=== PATIENT | female | born 1955 | race Caucasian/White ===

== ENCOUNTER 2020-07-10 10:43 | Outpatient (REF) | payer MEDICARE, SELFPAY ==
--- NOTE | 2020-07-10 10:53 | XR_ITS ---
EXAMINATION: XR PELVIS CLINICAL INFORMATION: Left hip replacement. COMPARISON: Pelvis radiographs 05/26/2020, left hip radiographs 01/30/2020 TECHNIQUE: AP view pelvis is performed along with lateral view left hip FINDINGS: There is bipolar left hip replacement. The hardware is intact. There is no fracture or dislocation or destructive process. No osteolysis. There are degenerative changes lumbosacral junction with disc narrowing and endplate sclerosis. The SI joints and pubis are unremarkable. There are degenerative changes again seen right hip with axial narrowing and subchondral sclerosis and osteophyte similar to prior study. Bowel gas unremarkable. XR/XR pelvis 1-2V IMPRESSION: 1. Left hip replacement. Hardware intact. No osteolysis. 2. Degenerative changes lumbosacral junction and right hip.
== END 2020-07-10 10:44 | disposition home or self-care (01) ==
LOC: HO.XRAY 10:43
PROVIDERS: PCP Internal Medicine; Referring Provider Internal Medicine; Visit Provider Orthopaedic Surgery
DX: Z96.642 Presence of left artificial hip joint (principal); M16.12 Unilateral primary osteoarthritis, left hip; M87.852 Other osteonecrosis, left femur; F17.200 Nicotine dependence, unspecified, uncomplicated
CPT/HCPCS: 72170; 99212

== ENCOUNTER 2020-08-25 10:00 | Outpatient (RCR) | payer MEDICARE, SELFPAY ==
--- NOTE | 2020-08-25 11:06 | MHC.PT.DC ---
[facility] [place] [facility] [place] Office [place] Office [address] Mannie Castañeda [address] [phone] F: [phone] F: [phone] F: [phone] F: [phone] Physical Therapy Discharge Report Diagnosis: L FARA on 05/26/2020 Date of Surgery: 05/26/2020 Date of Evaluation: 07/01/20 Date of Discharge: Treatments to Date: 12 Cancellations to Date: 0 No Shows to Date: 0 Discharge Status: Discharge Summary: Patient has progressed well through PT. She now ambulates without AD, demos good strength and ROM and tolerates dynamic balance work well. She has improved pain and has returned PLOF. DC to HEP at this time. Electronically signed by: Dionne Ruano PT Please sign and return to therapist. Thank you for your referral.
== END 2020-08-27 11:55 | disposition home or self-care (01) ==
LOC: HO.PTCHIC 10:00
PROVIDERS: PCP Internal Medicine; Visit Provider Physician Assistant
DX: Z47.1 Aftercare following joint replacement surgery (principal); Z96.642 Presence of left artificial hip joint
CPT/HCPCS: 97110; 97112; 97116; 97162; 97530

== ENCOUNTER → 2021-03-17 12:20 | Outpatient (BNVA) | payer MEDICARE, MEDICAID, OTHER, SELFPAY | PROVIDERS: PCP Internal Medicine; Visit Provider Physician Assistant | DX: S42.201A Unspecified fracture of upper end of right humerus, initial encounter for closed fracture (principal) | CPT/HCPCS: 99212 ==

== ENCOUNTER 2021-04-15 05:27 | Outpatient (REF) | payer MEDICARE, SELFPAY ==
--- NOTE | ~2021-04-15 | XR_ITS ---
EXAMINATION: XR SHOULDER, RIGHT CLINICAL INFORMATION: M25.511 - Pain in right shoulder COMPARISON: None TECHNIQUE: Right shoulder is imaged in frontal and lateral views. FINDINGS: There is a subacute humeral neck fracture with mild impaction and varus angulation distal fragment and surrounding callus formation. There is no dislocation or destructive process. The lateral view also shows cortical step off of the acromium suggesting subacute fracture not appreciated on the frontal view. The acromioclavicular alignment is normal. Right lung apex is clear and shows no pneumothorax or pleural reaction. XR/XR shoulder RT min 2V IMPRESSION: 1. Subacute fracture right humeral neck. Callus formation present. No dislocation. 2. Lateral view also suggests fracture acromium. Acromioclavicular alignment normal.
== END 2021-04-15 05:28 | disposition home or self-care (01) ==
LOC: HO.HOSX 05:27
PROVIDERS: Visit Provider Physician Assistant
DX: S42.201D Unspecified fracture of upper end of right humerus, subsequent encounter for fracture with routine healing (principal)
CPT/HCPCS: 73030; 99212

== ENCOUNTER 2021-05-19 07:29 | Outpatient (REF) | payer MEDICARE, MEDICAID, SELFPAY ==
--- NOTE | ~2021-05-19 | XR_ITS ---
EXAMINATION: XR SHOULDER, RIGHT CLINICAL INFORMATION: Fracture COMPARISON: Previous x-ray March 2021 TECHNIQUE: Two views of the right shoulder. FINDINGS: The comminuted humeral neck fracture appears unchanged in alignment. There is some bony callus formation seen not appreciably changed from previous exam. There is question of a fracture of the acromion that appears unchanged. The glenohumeral joint is normal. There is mild arthritis at the acromioclavicular joint. Soft tissues are unremarkable. XR/XR shoulder RT min 2V IMPRESSION: No change in right humeral neck and question acromion fracture.
== END 2021-05-19 07:30 | disposition home or self-care (01) ==
LOC: HO.HOSX 07:29
PROVIDERS: Visit Provider Physician Assistant
DX: S42.201D Unspecified fracture of upper end of right humerus, subsequent encounter for fracture with routine healing (principal)
CPT/HCPCS: 73030; 99212

== ENCOUNTER 2021-05-21 11:00 | Outpatient (RCR) | payer MEDICARE, SELFPAY ==
--- NOTE | 2021-04-20 09:50 | MHC.PT.EP ---
[facility] [place] Office [place] Office [place] Office [address] Miesha Castañeda [address] [phone] F: [phone] F: [phone] F: [phone] F: [phone] Physical Therapy Plan of Care Date of Evaluation: Date of Surgery: None Diagnosis: R humeral fracture Assessment: Patient is a 65 year old R handed female who presents with s/s consistent with fracture of humerus. She is not currently working but would like to potentially when healed. She is traveling to [place] in 5 weeks and is hoping to be feeling much better by then. Patient past medical history is non-contributory. Current impairments include pain, posture, ROM, strength, safety, independence, activity tolerance and functional mobility. Functional limitations include decreased ability to lift, reach, carry, push, pull, shower, dress, and perform weight bearing activities.. Patient is motivated with good rehab potential. Skilled PT will address impairments and functional limitations in order to achieve goals. Frequency and Duration: The patient will be seen 2x/week for 5 weeks Short Term Goals: I with HEP - 2 weeks AROM flexion and abd to 90, ER to 30 - 3 weeks Able to sleep 4 hours undisturbed by pain - 3 weeks Halfway Goals: Strength 4/5 - 5 weeks AROM flexion and abd 120, ER/IR arc to 120 Treatment Plan: Modalities to reduce pain, spasms and effusion. Manual therapy to restore motion and function. Therapeutic exercise to improve strength and flexibility. Neuromuscular re-education for posture and balance. Therapeutic activities to return to functional activities of daily living. Electronically signed by: Shalom Mueller, PT Please sign and return to therapist. Thank you for your referral.
--- NOTE | 2021-08-24 14:09 | MHC.PT.DC ---
[facility] [place] Office [place] Office [place] Office [address] Mannie Castañeda 140 [facility] [phone] F: [phone] F: [phone] F: [phone] F: [phone] Physical Therapy Discharge Report Diagnosis: R humeral fracture 03/13/21 Date of Surgery: None Date of Evaluation: 04/19/21 Date of Discharge: 05/21/21 Treatments to Date: 10 Cancellations to Date: 0 No Shows to Date: 0 Discharge Status: Independent with HEP Discharge Summary: 05/21/21: Pt has improved on impairments and functional limitations. She is happy with progress and confident flying to [place]. She will pursue PT once there. She is appropriate to d/c to HEP at this time. Electronically signed by: Shalom Mueller, PT Please sign and return to therapist. Thank you for your referral.
== END 2021-08-24 14:09 | disposition home or self-care (01) ==
LOC: HO.PTCHIC 11:00
PROVIDERS: Visit Provider Physician Assistant
DX: S42.201A Unspecified fracture of upper end of right humerus, initial encounter for closed fracture (principal)
CPT/HCPCS: 97110; 97140; 97161

== ENCOUNTER 2021-09-02 05:10 | Outpatient (REF) | payer MEDICARE, MEDICAID, SELFPAY ==
--- NOTE | ~2021-09-02 | XR_ITS ---
EXAMINATION: XR SHOULDER, RIGHT CLINICAL INFORMATION: Pain in right shoulder COMPARISON: 05/19/2021 TECHNIQUE: AP external rotation, Grashey, scapular Y, and axillary views of the right shoulder. FINDINGS: There is been interval healing of the comminuted right humeral neck fracture with stable osseous alignment. The glenohumeral joint and acromioclavicular joints appear grossly intact. No new fracture. Degenerative changes in the glenohumeral joint. XR/XR shoulder RT min 2V IMPRESSION: Stable osseous alignment in the healing humeral neck fracture.
== END 2021-09-02 05:11 | disposition home or self-care (01) ==
LOC: HO.HOSX 05:10
PROVIDERS: Visit Provider Physician Assistant
DX: S42.201D Unspecified fracture of upper end of right humerus, subsequent encounter for fracture with routine healing (principal)
CPT/HCPCS: 73030; 99212

== ENCOUNTER 2024-05-29 11:11 | Outpatient (AMB) | payer MEDICARE, MEDICAID, SELFPAY ==
--- NOTE | 2024-05-29 11:33 | MHC.OFFWIV ---
Intake Vital Signs 05/29/24 11:34 Height 5 ft 4 in Weight 156 lb BMI 26.8 BP 128/84 Blood Pressure Location Rt brachial Position Sitting Pulse 88 Pulse Source Pulse Oximeter Temp 100.0 F Temp Source Oral Pulse Oximetry (%) 96 Oxygen Delivery Method Room Air Intake Visit Reasons: EP-rt arm swollen from a fall Intake Note: pt c/o LT arm and wrist swollen and painful. 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 [facility] Medical History Avascular necrosis of femur head, left Primary osteoarthritis of left hip Surgical History History of cholecystectomy History of open reduction and internal fixation (ORIF) procedure Status post total hip replacement, left Family History Mother No problems noted. Father No problems noted. Social History (System 09/27/23 @ 12:58 by Shaila Sullivan) Patient Tobacco Use Status: Current everyday Tobacco user Current occupational status: retired Current occupation: rt handed Review of Systems Const Denies chills, Denies fever(s) and Denies weakness ENT Denies neck pain Card Denies chest pain Resp Denies cough GI Denies vomiting Musc Reports joint swelling (L distal forearm/wrist edema/ecchymosis), Denies neck pain and Denies tingling Skin/Breast Reports unusual bruising (L distal forearm) Neuro Denies tingling and Denies weakness Physical Exam Vital Signs: Last Vital Signs Temp 100.0 F 05/29/24 11:34 Pulse 88 05/29/24 11:34 BP 128/84 05/29/24 11:34 Pulse Ox 96 05/29/24 11:34 Oxygen Delivery Method Room Air 05/29/24 11:34 BMI result Body Mass Index 26.8 General: Non-toxic, NAD. Speaking full sentences. Skin: Warm dry throughout. L distal forearm/wrist with blue/purple ecchymosis. No erythema or warmth. Minimal green discoloration to dorsal aspect L hand. Neck: No c-spine tenderness Respiratory: No respiratory distress. No tachypnea Cardiac: Radial pulse 2+ L wrist MSK: No bony tenderness to palpation L AC joint, clavicle, shoulder, humerus or elbow. + tenderness to palpation radial aspect L distal wrist and scaphoid bone. + full movement at digits L hand without bony tenderness to metacarpal bones L hand. Neurology: A/O. No aphasia or facial droop. Gait without abnormality Psych: Good mood and affect Office Procedures Casting/Splints 88944-Tzrcamm Splint Application (verbal consent obtained. Thumb spica applied to LUE. Neurovascularly intact pre and post application. Pt tolerated well.) Additional procedure code (CPT) needed Assessment & Plan Assessment & Plan (1) Wrist pain, left: Code(s): M25.532 - Pain in left wrist Plan: I evaluated pt and xray ordered (2) Wrist fracture, left: Code(s): S62.102A - Fracture of unspecified carpal bone, left wrist, initial encounter for closed fracture Qualifiers: Encounter type: initial encounter Fracture type: closed Qualified Code(s): S62.102A - Fracture of unspecified carpal bone, left wrist, initial encounter for closed fracture Plan: Patient seen and evaluated. Xray interpretted by myself + fx radius distal See procedure note; splint applied Pt tolerated well. Discussed care instructions with pt and grandson Ortho follow up Arm elevation. Tylenol with codeine severe pain (discussed lethargy. No alcohol or driving) Patient and grandson gave verbal understanding and had no additional questions or concerns at time of discharge All questions answered Orders: Referrals Orthopedics Referral S62.102A - Fracture of unspecified carpal bone, left wrist, initial encounter for closed fracture Medications: New acetaminophen-codeine 300-15 mg 1 tab PO Q12H PRN 5 tabs 0RF pain Coding Level of Care Code Est Pt Level 4 (31200) Diagnoses Wrist pain, left M25.532 Closed fracture of left wrist, initial encounter S62.102A Encounter type: initial encounter Fracture type: closed CPT Codes Splint - CPT: 98051-Dptcftb Splint Application ([id number])
[2024-05-29 11:34] VITALS: BP 128/84; PULSE 88; TEMP 37.8; O2SAT 96; BMI 26.8
== END 2024-05-29 12:37 | disposition home or self-care (01) ==
PROVIDERS: PCP Internal Medicine; Visit Provider Physician Assistant
DX: S62.102A Fracture of unspecified carpal bone, left wrist, initial encounter for closed fracture (principal); M25.532 Pain in left wrist
CPT/HCPCS: 99214

== ENCOUNTER 2024-05-29 11:51 | Outpatient (REF) | payer MEDICARE, MEDICAID, SELFPAY ==
--- NOTE | ~2024-05-29 | XR_ITS ---
EXAMINATION: XR WRIST, LEFT CLINICAL INFORMATION: Pain in the left wrist COMPARISON: None available. TECHNIQUE: PA, lateral, and oblique views of the left wrist. Single view of the left scaphoid. FINDINGS: There is cortical disruption involving the left distal radius metaphysis suggesting nondisplaced fracture, better visualized on the lateral projection, series 3 image 1. No definite intra-articular extension. No additional fractures identified. The scapholunate interval is within normal limits. Joint spaces appear maintained. Mild soft tissue swelling. No abnormal soft tissue calcifications. XR/XR wrist LT w scaphoid IMPRESSION: Cortical disruption involving the left distal radius metaphysis suggesting nondisplaced fracture. Electronically signed by: Negrito Aleman MD 05/29/2024 12:58 PM EDT
== END 2024-05-29 11:52 | disposition home or self-care (01) ==
LOC: HO.HMGCX 11:51
PROVIDERS: PCP Internal Medicine; Visit Provider Physician Assistant
DX: M25.532 Pain in left wrist (principal)
CPT/HCPCS: 73110

== ENCOUNTER 2024-05-30 10:28 | Outpatient (REF) | payer MEDICARE, MEDICAID, SELFPAY ==
--- NOTE | ~2024-05-30 | XR_ITS ---
EXAMINATION: XR WRIST, LEFT CLINICAL INFORMATION: Distal radius fracture follow-up COMPARISON: 05/29/2024 TECHNIQUE: PA, lateral, and oblique views of the left wrist performed on 05/30/2024 and on 06/04/2024. FINDINGS: Earlier set of radiographs demonstrates stable alignment with minimal sclerosis along the distal radius fracture. Slight dorsal angulation. The fracture demonstrates intra-articular portion at the ulnar aspect, and extends through Adam's tubercle dorsally. No additional fracture or new abnormality. The later set of radiographs demonstrates a decrease in soft tissue swelling. The distal radius fracture is again in stable alignment with slight dorsal angulation. Subtle sclerosis at the midportion of the fracture is similar. XR/XR wrist LT w scaphoid IMPRESSION: Stable alignment of the intra-articular distal radius fracture with slight dorsal angulation. Minimal interval healing.The later set of radiographs demonstrates a decrease in soft tissue swelling. Electronically signed by: Jorge Sal MD 06/05/2024 01:31 PM EDT
== END 2024-05-30 10:29 | disposition home or self-care (01) ==
LOC: HO.HOSX 10:28
PROVIDERS: PCP Internal Medicine
DX: S52.502A Unspecified fracture of the lower end of left radius, initial encounter for closed fracture (principal)
CPT/HCPCS: 25600; 73110; 99202

== ENCOUNTER 2024-05-30 11:23 | Outpatient (AMB) | payer MEDICARE, MEDICAID, SELFPAY ==
--- NOTE | 2024-05-30 11:25 | MHC.OFFVIS ---
Vital Signs 05/30/24 11:29 Height 5 ft 4 in Weight 156 lb BMI 26.8 Handedness Right Intake Visit Reasons: FC- Left wrist fracture Intake Note: Danelle is a 68 year old right hand dominant Bangladeshi speaking female who presents today with her son for her left wrist fracture s/p fall DOI: 05/27/2024. Patient reports she was outside getting a package when she fell on her left arm. She has been experiencing pain and swelling since the fall. Her symptoms exacerbate with ROM. Denies numbness, tingling, and weakness. She was seen on 05/29/2024 at [facility] where they provided her with a brace however her son says she finds relief without it because it was causing her pain. Tylenol and ibuprofen offers mild relief. Hx of Left humeral head fracture with plate placed and Right humerus fracture that healed with sling. Accompanied by: Son Allergies No Known Allergies [No Known Allergies*] Allergy (Verified 05/30/24 11:32) HPI HPI FC- Left wrist fracture: Details: Patient is a 68-year-old Bangladeshi speaking female who presents for evaluation of left wrist fracture, date of injury 05/27/2024. On this date, the patient's son reports that she was going to get her mail, when she fell onto her left hand and wrist. Patient was previously evaluated at the urgent care, where x-rays were taken, revealing a minimally displaced fracture of the left distal radius. The patient was provided with a Velcro wrist splint to be worn until follow-up, but the patient her son both state that she was experiencing significantly more pain with the splint on, so they removed it. Today, the patient reports that she is still experiencing significant swelling, bruising, and discomfort on both the dorsal and volar aspects of the left wrist. Patient denies any numbness or tingling in the left upper extremity. No other acute complaints or concerns at this time. [facility] Medical History Avascular necrosis of femur head, left Primary osteoarthritis of left hip Surgical History History of cholecystectomy History of open reduction and internal fixation (ORIF) procedure Status post total hip replacement, left Family History Mother No problems noted. Father No problems noted. Social History (Updated 05/30/24 @ 11:33 by NUVIA Prather) Alcohol intake: current Alcohol intake frequency: a few times a month Patient Tobacco Use Status: Current everyday Tobacco user Tobacco use type: Cigarette Current occupational status: retired Current occupation: rt handed Review of Systems Const All systems reviewed & are unremarkable except as noted in HPI and below Physical Exam Vital Signs: BMI result Body Mass Index 26.8 Extrem Other: Patient is alert, oriented, and in no acute distress. Neuro: Patient reports normal sensation of the tips of all digits left hand at this time Vascular: Cap refill brisk Pain: Patient reports tenderness to palpation about the radial styloid, as well as on the dorsal and volar aspects of the left wrist at the level of the ulnar distal radius and DRUJ No tenderness to palpation of the left anatomical snuffbox No tenderness to palpation of the left ulnar styloid ROM: Patient is able to make a closed fist and extend all digits of the left hand fully without difficulty Skin: No lacerations or abrasions. General: Significant ecchymosis and edema of the left wrist noted, both door and volar No erythema noted No evidence of infection No laxity of the DRUJ noted Psych: Appears grossly normal Affect normal Attitude cooperative Results Reviewed Results Reviewed: X-rays obtained in the office today and independently reviewed by me, Bryn Obrien PA-C, demonstrate minimally displaced fracture of the left distal radius. Assessment & Plan Assessment & Plan (1) Fracture of left distal radius: Code(s): S52.502A - Unspecified fracture of the lower end of left radius, initial encounter for closed fracture Category: Medical Plan 1. Left distal radius fracture Date of injury 05/27/2024 Patient was discussed with Dr. Reid, who was not available in clinic to see the patient with me today, and a collaborative treatment plan was formed: Patient is informed that, due to minimally displaced nature of her fracture, she can tentatively be managed conservatively At this time, the patient is placed in a volar short-arm splint to allow for decrease in swelling Patient is informed that she should keep the splint on at all times, keep it dry and clean Patient is also advised she should not be lifting anything heavier than 1-2 lb in her hand I informed the patient that he should follow-up next week with me while Dr. Reid's in the office, to reassess fracture alignment and discuss if any further intervention, including surgery, would be indicated at that time. Patient is amenable to this plan Patient will follow-up next week for reassessment, sooner with any acute concerns Orders: Orders XR wrist LT w scaphoid Today M25.532 - Pain in left wrist Coding Level of Care Code New Pt Level 3 (54294) Diagnoses Fracture of left distal radius S52.502A
[2024-05-30 11:29] VITALS: BMI 26.8
== END 2024-05-30 12:11 | disposition home or self-care (01) ==
PROVIDERS: PCP Internal Medicine
DX: S52.502A Unspecified fracture of the lower end of left radius, initial encounter for closed fracture (principal)
CPT/HCPCS: 25600; 99203; 99213

== ENCOUNTER 2024-06-04 10:53 | Outpatient (AMB) | payer MEDICARE, MEDICAID, SELFPAY ==
[2024-06-04 11:23] VITALS: BMI 26.8
--- NOTE | 2024-06-04 11:23 | A.OFFVIS_ITS ---
Vital Signs 06/04/24 11:23 Height 5 ft 4 in Weight 156 lb BMI 26.8 Intake Visit Reasons: OV- Left wrist fracture-Follow up Intake Note: Danelle is a 68 year old right hand dominant Greek speaking female who presents today with her cousin for a follow up visit of her left wrist fracture s/p fall DOI: 05/27/2024. Patient denies pain, numbness, or tingling. Allergies No Known Allergies [No Known Allergies*] Allergy (Verified 06/04/24 11:28) HPI HPI OV- Left wrist fracture-Follow up: Details: Patient is a 69-year-old female who presents for one-week follow-up status post left distal radius fracture, date of injury 05/27/2024. Today, the patient reports that she is feeling much better, and that she is not experiencing any pain in the hand or wrist at baseline. The patient reports that she did leave the splint on at all times since prior evaluation, and then she was very adherent to the 2 lb weight limit previously given to her. Patient reports that her swelling has also decreased significantly since date injury patient denies any numbness or tingling in the left upper extremity. No other acute complaints or concerns at this time. [facility] Medical History Avascular necrosis of femur head, left Primary osteoarthritis of left hip Surgical History History of cholecystectomy History of open reduction and internal fixation (ORIF) procedure Status post total hip replacement, left Family History Mother No problems noted. Father No problems noted. Social History (Updated 05/30/24 @ 11:33 by NUVIA Prather) Alcohol intake: current Alcohol intake frequency: a few times a month Patient Tobacco Use Status: Current everyday Tobacco user Tobacco use type: Cigarette Current occupational status: retired Current occupation: rt handed Physical Exam Vital Signs: BMI result Body Mass Index 26.8 Extrem Other: Patient is alert, oriented, and in no acute distress. Neuro: Normal sensation of the tips of all digits of the left hand at this time Vascular: Cap refill brisk Pain: Patient reports no tenderness to palpation about the left hand or wrist No tenderness to palpation of the radial styloid No tenderness to palpation of the ulnar styloid No anatomical snuffbox tenderness ROM: Patient is able to make a closed fist and extend the digits of the left hand fully and without difficulty Skin: No lacerations or abrasions. General: Mild edema about the left wrist noted Old, yellowed ecchymosis noted on the left wrist, worst on the dorsal aspect Psych: Appears grossly normal Affect normal Attitude cooperative Office Procedures Casting/Splints 20426-Vkqzrjt Cast Application Procedure code (CPT) selection complete Fracture Care Details: Left distal radius fracture Fracture Billing Code: Fracture Billing Code Results Reviewed Results Reviewed: X-rays obtained in the office today and independently reviewed by me, Bryn Obrien PA-C, demonstrate minimally displaced fracture of the left distal radius with approximately 0-5 degrees of dorsal angulation. Assessment & Plan Assessment & Plan (1) Fracture of left distal radius: Code(s): S52.502A - Unspecified fracture of the lower end of left radius, initial encounter for closed fracture Category: Medical Plan 1. Left distal radius fracture, minimally displaced Date of injury 05/27/2024 Patient is discussed with Dr. Reid, who was not available to see the patient in clinic at this time, and a collaborative treatment plan was formed: It was decided that the patient will not require surgery, and can continue to be treated conservatively Patient was placed in a short-arm cast at this time, and is told she should remain in this cast for 3 weeks until follow-up Patient is educated about proper cast care and precautions Patient is once again informed that she will have a strict 2 lb weight limit in her left hand, for risk of displacing fracture and further indicating surgery Patient is also informed that she should continue with [id number] exercises of the left hand 2-3 times times per hour Patient is amenable to this plan Patient will follow-up in 3 weeks with repeat x-rays, sooner with any acute concerns Orders: Orders XR wrist LT w scaphoid Today M25.532 - Pain in left wrist Coding Level of Care Code Est Pt Level 3 (70958) Diagnoses Fracture of left distal radius S52.502A CPT Codes Casting - CPT: 65536-Xchrawi Cast Application ([id number]) Fracture Care - Fracture Billing Code: Fracture Billing Code ([id number])
== END 2024-06-04 12:59 | disposition home or self-care (01) ==
PROVIDERS: PCP Internal Medicine
DX: S52.502A Unspecified fracture of the lower end of left radius, initial encounter for closed fracture (principal); W19.XXXA Unspecified fall, initial encounter
CPT/HCPCS: 29075; 99024

== ENCOUNTER 2024-06-04 11:03 | Outpatient (REF) | payer MEDICARE, MEDICAID, SELFPAY ==
--- NOTE | ~2024-06-04 | XR_ITS ---
EXAMINATION: XR WRIST, LEFT CLINICAL INFORMATION: Distal radius fracture follow-up COMPARISON: 05/29/2024 TECHNIQUE: PA, lateral, and oblique views of the left wrist performed on 05/30/2024 and on 06/04/2024. FINDINGS: Earlier set of radiographs demonstrates stable alignment with minimal sclerosis along the distal radius fracture. Slight dorsal angulation. The fracture demonstrates intra-articular portion at the ulnar aspect, and extends through Adam's tubercle dorsally. No additional fracture or new abnormality. The later set of radiographs demonstrates a decrease in soft tissue swelling. The distal radius fracture is again in stable alignment with slight dorsal angulation. Subtle sclerosis at the midportion of the fracture is similar. XR/XR wrist LT w scaphoid IMPRESSION: Stable alignment of the intra-articular distal radius fracture with slight dorsal angulation. Minimal interval healing.The later set of radiographs demonstrates a decrease in soft tissue swelling. Electronically signed by: Jorge Sal MD 06/05/2024 01:31 PM EDT
== END 2024-06-04 11:04 | disposition home or self-care (01) ==
LOC: HO.HOSX 11:03
PROVIDERS: PCP Internal Medicine
DX: S52.502A Unspecified fracture of the lower end of left radius, initial encounter for closed fracture (principal); X58.XXXA Exposure to other specified factors, initial encounter; Y93.9 Activity, unspecified; Y92.9 Unspecified place or not applicable; Y99.9 Unspecified external cause status
CPT/HCPCS: 29075; 73110; 99212

== ENCOUNTER 2024-06-25 08:27 | Outpatient (REF) | payer MEDICARE, MEDICAID, SELFPAY ==
--- NOTE | ~2024-06-25 | XR_ITS ---
EXAMINATION: XR WRIST LEFT WITH SCAPHOID 4 VIEWS CLINICAL INFORMATION: Pain in left wrist M25.532. COMPARISON: XR Left wrist with scaphoid 06/04/2024 TECHNIQUE: PA, lateral, oblique and scaphoid views of the left wrist. FINDINGS: Again demonstrated is a nondisplaced distal radial fracture. There is mild interval callus formation below the fracture line is still visualized. Carpal bones are maintained. No carpal bone fracture. Visualized metacarpals demonstrate no fracture. XR/XR wrist LT w scaphoid IMPRESSION: Mild interval callus formation of known distal radial fracture. Electronically signed by: Rico Beauchamp MD 08/29/2024 08:45 AM AXEL
== END 2024-06-25 08:28 | disposition home or self-care (01) ==
LOC: HO.HOSX 08:27
DX: M25.532 Pain in left wrist (principal); S52.502D Unspecified fracture of the lower end of left radius, subsequent encounter for closed fracture with routine healing
CPT/HCPCS: 73110; 99212

== ENCOUNTER 2024-06-25 08:37 | Outpatient (AMB) | payer MEDICARE, MEDICAID, SELFPAY ==
--- NOTE | 2024-06-25 08:52 | MHC.OFFVIS ---
Intake Visit Reasons: OV- Left wrist fracture-Follow up Intake Note: Danelle is a 69 year old right hand dominant [place]uran speaking female who presents today with her cousin for a follow up visit of her left wrist fracture s/p fall DOI: 05/27/2024. Pt states she doesn't have any pain and is able to move all of her fingers. Pt states she has no complaints at this time. Accompanied by: cousin Allergies No Known Allergies [No Known Allergies*] Allergy (Verified 06/25/24 08:53) HPI HPI OV- Left wrist fracture-Follow up: Details: Patient is a 69-year-old female who presents for 4 week follow-up after left distal radius and ulnar styloid fractures, date of injury 05/27/24. Today, the patient reports that she is feeling well, in his experiencing no acute symptoms at this time. The patient reports that her only concern was that she felt her cast was ?too heavy?. The patient reports that she has been compliant with the 2 lb weight limit given to her at last visit. Patient denies any numbness or tingling in the left hand. No other acute complaints or concerns at this time. [facility] Medical History Avascular necrosis of femur head, left Primary osteoarthritis of left hip Surgical History History of cholecystectomy History of open reduction and internal fixation (ORIF) procedure Status post total hip replacement, left Family History Mother No problems noted. Father No problems noted. Social History (Updated 05/30/24 @ 11:33 by NUVIA Prather) Alcohol intake: current Alcohol intake frequency: a few times a month Patient Tobacco Use Status: Current everyday Tobacco user Tobacco use type: Cigarette Current occupational status: retired Current occupation: rt handed Review of Systems Const All systems reviewed & are unremarkable except as noted in HPI and below Physical Exam Extrem Other: Patient is alert, oriented, and in no acute distress. Neuro: Normal sensation of the tips of all digits of the left hand at this time Vascular: Cap refill brisk Pain: Patient reports no tenderness to palpation of the left radial styloid, ulnar styloid, anatomical snuffbox, or elsewhere throughout the left wrist and hand ROM: Patient is able to make a closed fist and extend all digits of the left hand fully and without difficulty Skin: No lacerations or abrasions. General: Resolving ecchymosis noted in the left wrist No erythema or evidence of infection noted Psych: Appears grossly normal Affect normal Attitude cooperative Results Reviewed Results Reviewed: X-rays obtained in the office today and independently reviewed by me, Bryn Obrien PA-C, demonstrate minimally displaced fracture of the left distal radius with intra-articular involvement and evidence of interval bony healing. Assessment & Plan Assessment & Plan (1) Fracture of left distal radius: Code(s): S52.502A - Unspecified fracture of the lower end of left radius, initial encounter for closed fracture Category: Medical Plan 1. Left distal radius fracture, minimally displaced Date of injury 05/27/2024 Patient appears to be recovering well from her injury Patient is educated about the typical recovery course At this time, patient was provided with a Velcro wrist splint to be worn with daytime activities, it was removed from a cast Patient is educated that she can remove this while at rest or while bathing to work on gentle range of motion of the left wrist Patient was initially told that she does not have to wear the Velcro wrist splint while sleeping, but she states she is very concerned that she does roll over onto her left wrist frequently while sleeping Patient is educated that if she is more comfortable, she can wear the Velcro wrist splint to sleep for the 1st 2 weeks Patient is amenable to this plan Patient will follow-up in 4 weeks with repeat x-rays for reassessment, sooner with any acute concerns Orders: Orders XR wrist LT w scaphoid Today M25.532 - Pain in left wrist Coding Level of Care Code Global (84597) Diagnoses Fracture of left distal radius S52.502A
== END 2024-06-25 09:31 | disposition home or self-care (01) ==
PROVIDERS: PCP Internal Medicine
DX: S52.502A Unspecified fracture of the lower end of left radius, initial encounter for closed fracture (principal)
CPT/HCPCS: 99024

== ENCOUNTER 2024-07-23 08:58 | Outpatient (REF) | payer MEDICARE, MEDICAID, SELFPAY ==
--- NOTE | ~2024-07-23 | XR_ITS ---
EXAMINATION: XR WRIST LEFT WITH SCAPHOID CLINICAL INFORMATION: Pain in left wrist M25.532. COMPARISON: XR Left wrist with scaphoid 06/25/2024 TECHNIQUE: PA, lateral, scaphoid and oblique views of the left wrist. FINDINGS: Continued interval callus formation of the distal intra-articular radial fracture. Fracture line remains faintly visible. No fracture the visualized distal ulna. Carpal rows are maintained. No carpal bone fracture. Visualized metacarpals demonstrate no fracture. No significant soft tissue swelling. No radiopaque foreign body. XR/XR wrist LT w scaphoid IMPRESSION: Continued interval healing of distal intra-articular radial fracture. Electronically signed by: Rico Beauchamp MD 08/29/2024 09:57 AM AXEL [facility]DIVAR
== END 2024-07-23 08:59 | disposition home or self-care (01) ==
LOC: HO.HOSX 08:58
PROVIDERS: PCP Internal Medicine
DX: M25.532 Pain in left wrist (principal); S52.502D Unspecified fracture of the lower end of left radius, subsequent encounter for closed fracture with routine healing; S52.615S Nondisplaced fracture of left ulna styloid process, sequela
CPT/HCPCS: 73110; 99212

== ENCOUNTER 2024-07-23 08:58 | Outpatient (AMB) | payer MEDICARE, MEDICAID, SELFPAY ==
--- NOTE | 2024-07-23 09:07 | A.OFFVIS_ITS ---
Intake Visit Reasons: OV- Left wrist fracture-Follow up-w/xray Intake Note: Danelle is a 68 year old right hand dominant Amharic speaking female who presents today with her cousin Ting for a follow up visit of her left wrist fracture s/p fall DOI: 05/27/2024. Patient reports that she is dong well with no pain, denies numbness and tingling. She is wearing her brace with activity. She feels that her ROM is improving. Allergies No Known Allergies [No Known Allergies*] Allergy (Verified 07/23/24 09:10) HPI HPI OV- Left wrist fracture-Follow up-w/xray: Details: Patient is a 69-year-old female who presents for 4 week evaluation of left distal radius fracture. Today, the patient reports that she is feeling well, in his experiencing no acute symptoms at this time. The patient reports that she has been compliant with the 2 lb weight limit given to her at last visit. Patient denies any numbness or tingling in the left hand. No other acute complaints or concerns at this time. [facility] Medical History Primary osteoarthritis of left hip Avascular necrosis of femur head, left Surgical History Status post total hip replacement, left History of open reduction and internal fixation (ORIF) procedure History of cholecystectomy Family History Mother No problems noted. Father No problems noted. Social History Alcohol intake: current Alcohol intake frequency: a few times a month Patient Tobacco Use Status: Current everyday Tobacco user Tobacco use type: Cigarette Current occupational status: retired Current occupation: rt handed Review of Systems Const All systems reviewed & are unremarkable except as noted in HPI and below Physical Exam Extrem Other: Patient is alert, oriented, and in no acute distress. Neuro: Normal sensation of the tips of all digits of the left hand at this time Vascular: Cap refill brisk Pain: Patient reports no tenderness to palpation of the left radial styloid, ulnar styloid, anatomical snuffbox, or elsewhere throughout the left wrist and hand ROM: Patient is able to make a closed fist and extend all digits of the left hand fully and without difficulty Skin: No lacerations or abrasions. General: Resolving ecchymosis noted in the left wrist No erythema or evidence of infection noted Psych: Appears grossly normal Affect normal Attitude cooperative Results Reviewed Results Reviewed: X-rays obtained in the office today and independently reviewed by me, Bryn Obrien PA-C, demonstrate minimally displaced fracture of the left distal radius with intra-articular involvement and evidence of interval bony healing. Assessment & Plan Assessment & Plan (1) Fracture of left distal radius: Code(s): S52.502A - Unspecified fracture of the lower end of left radius, initial encounter for closed fracture Category: Medical (2) Nondisplaced fracture of left ulna styloid process, sequela: Code(s): S52.615S - Nondisplaced fracture of left ulna styloid process, sequela Category: Medical Plan 1. Left distal radius fracture, minimally displaced Date of injury 05/27/2024 Patient appears to be recovering well from her injury Patient is educated about the typical recovery course At this time, patient was provided with a Velcro wrist splint to be worn with daytime activities, it was removed from a cast Patient is educated that she can remove this while at rest or while bathing to work on gentle range of motion of the left wrist Patient is educated that she should be completely out of the Velcro wrist while sleeping, and that this will not displace her fracture further Patient is amenable to this plan Patient will follow-up in 4 weeks with repeat x-rays for reassessment, sooner with any acute concerns Orders: Orders XR wrist LT w scaphoid Today M25.532 - Pain in left wrist Coding Level of Care Code Global (09251) Diagnoses Fracture of left distal radius S52.502A Nondisplaced fracture of left ulna styloid process, sequela S52.615S
== END 2024-07-23 09:44 | disposition home or self-care (01) ==
LOC: HO.HOS 08:58
PROVIDERS: PCP Internal Medicine
DX: S52.502A Unspecified fracture of the lower end of left radius, initial encounter for closed fracture (principal); S52.615S Nondisplaced fracture of left ulna styloid process, sequela
CPT/HCPCS: 99024

== ENCOUNTER 2024-09-02 14:50 | Outpatient (AMB) | payer MEDICARE, MEDICAID, SELFPAY ==
--- NOTE | 2024-09-02 14:53 | A.OFFVIS_ITS ---
Vital Signs 09/02/24 14:58 Height 5 ft 4 in Weight 196 lb BMI 33.6 Handedness Right Intake Visit Reasons: OV: Left wrist FX DOI:05/27/24-w/xrays Intake Note: Danelle is a 68 year old right hand dominant Welsh speaking female who presents today with her cousin Ting for a follow up visit of her left wrist fracture s/p fall DOI: 05/27/2024. Patient reports she feels well. Denies pain. Denies stiffness and tightness. Patient states she has no question or concerns at visit. Allergies No Known Allergies [No Known Allergies*] Allergy (Verified 09/02/24 14:58) HPI HPI OV: Left wrist FX DOI:05/27/24-w/xrays: Details: Patient is a 69-year-old female who presents for evaluation of left distal radius fracture, date of injury 05/27/2024. Today, the patient reports that she is feeling very well, as experiencing no pain, swelling, or other concerns in the left wrist. Patient states she has still been wearing the a Velcro wrist splint with daytime activities, and does express that she has some apprehension about getting back to full normal activity. Denies any numbness or tingling in the left hand. No other acute complaints or concerns at this time. COUNTS INCLUDE 234 BEDS AT THE [facility] Medical History Primary osteoarthritis of left hip Avascular necrosis of femur head, left Surgical History Status post total hip replacement, left History of open reduction and internal fixation (ORIF) procedure History of cholecystectomy Family History Mother No problems noted. Father No problems noted. Social History Alcohol intake: current Alcohol intake frequency: a few times a month Patient Tobacco Use Status: Current everyday Tobacco user Tobacco use type: Cigarette Current occupational status: retired Current occupation: rt handed Review of Systems Const All systems reviewed & are unremarkable except as noted in HPI and below Physical Exam Vital Signs: BMI result Body Mass Index 33.6 Extrem Other: Patient is alert, oriented, and in no acute distress. Neuro: Normal sensation of the tips of all digits of the left hand at this time Vascular: Cap refill brisk Pain: Patient reports no tenderness to palpation of the left radial styloid, ulnar styloid, anatomical snuffbox, or elsewhere throughout the left wrist and hand ROM: Patient is able to make a closed fist and extend all digits of the left hand fully and without difficulty Skin: No lacerations or abrasions. General: Resolving ecchymosis noted in the left wrist No erythema or evidence of infection noted Psych: Appears grossly normal Affect normal Attitude cooperative Assessment & Plan Assessment & Plan (1) Fracture of left distal radius: Code(s): S52.502A - Unspecified fracture of the lower end of left radius, initial encounter for closed fracture Category: Medical (2) Nondisplaced fracture of left ulna styloid process, sequela: Code(s): S52.615S - Nondisplaced fracture of left ulna styloid process, sequela Category: Medical Plan 1. Left distal radius fracture, minimally displaced Date of injury 05/27/2024 Patient appears to be recovering well from her injury Patient is educated about the typical recovery course At this time, patient is educated that she no longer needs to wear the Velcro wrist splint with daytime activities Patient is educated that she can begin a gradual ramp up back to normal activity, increasing her lifting and activity levels as tolerated Patient is educated that she does not require any occupational therapy at this time, as she has no pain and her range of motion of her left hand and wrist is full and intact Patient is amenable to this plan Patient will follow-up as needed with any acute concerns Coding Level of Care Code Est Pt Level 3 (56553) Diagnoses Fracture of left distal radius S52.502A Nondisplaced fracture of left ulna styloid process, sequela S52.615S
[2024-09-02 14:58] VITALS: BMI 33.6
== END 2024-09-02 15:08 | disposition home or self-care (01) ==
PROVIDERS: PCP Internal Medicine
DX: S52.502A Unspecified fracture of the lower end of left radius, initial encounter for closed fracture (principal); S52.615S Nondisplaced fracture of left ulna styloid process, sequela
CPT/HCPCS: 99213

== ENCOUNTER → 2024-09-02 14:50 | Outpatient (BNVA) | payer MEDICARE, MEDICAID, SELFPAY | PROVIDERS: PCP Internal Medicine | DX: S52.502A Unspecified fracture of the lower end of left radius, initial encounter for closed fracture (principal); S52.615S Nondisplaced fracture of left ulna styloid process, sequela; W18.30XA Fall on same level, unspecified, initial encounter; Y93.9 Activity, unspecified; Y92.9 Unspecified place or not applicable; Y99.9 Unspecified external cause status | CPT/HCPCS: 99212 ==